=== PATIENT | male | born 1960 | race American Indian/Alaskan Native ===

== ENCOUNTER 2024-10-06 15:07 | Emergency (ER) | payer OTHER, SELFPAY ==
[2024-10-06] VITALS (10 sets, daily range): BP systolic 131–157; BP diastolic 83–89; PULSE 42–68; RESP 17–21; TEMP 36.1; O2SAT 96–98; BMI 25.8
--- NOTE | 2024-10-06 15:26 | DI.RAD.S_ITS ---
PROCEDURE: XR FINGER LT MIN 2V INDICATIONS: crush injury, laceration TECHNIQUE: AP hand, 2 views of the 1st finger(s) acquired. COMPARISON: None. FINDINGS: Bones: Comminuted fracture involving 1st distal phalangeal tuft with distal displacement of fractured fragment. No other fracture or dislocation. No suspicious bony lesions. Soft tissues: Soft tissue swelling around distal portion of left thumb is seen. No suspicious soft tissue calcifications. IMPRESSION: Acute comminuted and displaced fracture involving 1st distal phalangeal tuft with surrounding soft tissue swelling. No other fracture or dislocation. Dictated by: Giovany Munguia M.D. on 10/06/2024 at 15:40 Approved by: Giovany Munguia M.D. on 10/06/2024 at 15:41
--- NOTE | 2024-10-06 15:50 | PC.NURSE ---
Pt has a partial circumferential laceration at base of thumb nail bed that wraps to anterior aspect of thumb. It has some bleeding. Anterior of thumb is purple with decreased sensation. Provider Brad made aware of patient presentation. No new orders at this time.
[2024-10-06] MEDS: IBUPROFEN 400 MG TABLET PO (16:24)
[2024-10-06] MEDS: OXYCODONE/ACETAMINOPHEN 5/325 TABLET 1 TAB PO (16:24)
[2024-10-06] MEDS: cephALEXin 250 MG CAPSULE 500 MG PO (16:24)
[2024-10-06] MEDS: TET,DIPH,PERTUSS(ACELL),VAC/PF 0.5 ML SYRINGE IM (16:25)
[2024-10-06] MEDS: BACITRACIN OINT 0.9 GM PCKT 1 APPLIC TOP (19:08)
--- NOTE | 2024-10-06 19:10 | ED.GENADULT ---
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 Comes in with essentially a complete traumatic amputation of the tip of the left thumb at approximately the level of the base of the nail bed. Pain is controlled. There are no other injuries Related Data Home Medications Medication Instructions Recorded Confirmed lisinopril 40 mg tablet 40 mg PO DAILY 10/06/24 10/06/24 metoprolol succinate 50 mg 50 mg PO DAILY 10/06/24 10/06/24 tablet,extended release 24 hr simvastatin 40 mg tablet 40 mg PO ONCE PM 10/06/24 10/06/24 Previous Rx's Medication Instructions Recorded cephalexin 500 mg capsule 500 mg PO TID #21 caps 10/06/24 oxycodone-acetaminophen 5 mg-325 1 tab PO Q6H PRN pain #14 tabs 10/06/24 mg tablet Allergies Allergy/AdvReac Type Severity Reaction Status Date / Time No Known Drug Allergies Allergy Verified 10/06/24 15:13 Review of Systems Review of Systems Narrative: Pertinent positive and negative findings as per HPI Patient History Medical History (Updated 10/07/24 @ 07:21 by Tiffani Salinas MD) Hyperlipidemia Hypertension Social History Smoking Status: Current every day smoker Smoking Status: Current every day smoker Alcohol type: beer Exam Initial Vital Signs Initial Vital Signs: Vital Signs Temperature 97 F L 10/06/24 15:13 Pulse Rate 68 10/06/24 15:13 Respiratory Rate 17 10/06/24 15:13 Blood Pressure 157/89 H 10/06/24 15:13 Pulse Oximetry 96 10/06/24 15:13 Oxygen Delivery Method Room Air 10/06/24 15:13 General: Alert appropriate in no acute distress Respiratory: Able to speak in full sentences, no obvious respiratory distress Skin: No obvious rashes, warm and dry Neurologic: Grossly intact no obvious asymmetries or abnormalities Psych: appropriate insight and affect, cooperative Extremity: Tip of the left thumb with essentially traumatic amputation at the level of the nail bed. The midportion of the distal phalanx is extruding through the wound. There is still a flap of tissue that includes most of the pad of the thumb that is still has moderate blood flow. The very tip of the finger is a sensate with no blood flow. No other injury to the hand and he is neurovascularly intact proximal to the wound. Procedures Laceration Repair Completing traumatic amputation tip of the left thumb: Site: hand Side (If applicable): left Size (cm): 3 Description: irregular, contaminated and other (Traumatic amputation, nail bed involved) Depth: [id number] Local Anesthetic: lidocaine 1% Amount of anesthesia used (mL): 7 (Digital block done as well as infiltration around the wound to include bone) Pre-repair: wound explored, irrigated extensively, extensive debridement and wound margins revised Skin layer closed with: nylon (3-0 nylon deeper mattress sutures used to make sure that the skin pad was fully covering the distal portion of the phalanx 4.0 nylon was used with single interrupted sutures to reapproximate dermal edges. There was a proximally 3 mm portion where the wound was not able to be completely closed) Skin layer suture size: 3-0 and 4-0 Technique: simple, interrupted and horizontal mattress Muscle layer closed with: vicryl Muscle layer suture size: 3-0 (mattress, on either side of phalynx to close space and remove tension for external closure over bone) Number of sutures: 2 Course Orders Ordered: Discontinued Medications Bacitracin (Bacitracin Oint 0.9 Gm Pckt) 1 applic TOP NOW ONE Stop: 10/06/24 19:04 Last Admin: 10/06/24 19:08 Dose: 1 applic Documented By: JUAN A Cephalexin HCl (Cephalexin 250 Mg Capsule) 500 mg PO NOW ONE Stop: 10/06/24 16:17 Last Admin: 10/06/24 16:24 Dose: 500 mg Documented By: JUAN A Diphtheria/Tetanus/Acell Pertussis (Tet,Diph,Pertuss(Acell),Vac/Pf 0.5 Ml Syringe) 0.5 ml IM .ONCE ONE Stop: 10/06/24 16:17 Last Admin: 10/06/24 16:25 Dose: 0.5 ml Documented By: JUAN A Ibuprofen (Ibuprofen 400 Mg Tablet) 400 mg PO NOW ONE Stop: 10/06/24 16:17 Last Admin: 10/06/24 16:24 Dose: 400 mg Documented By: JUAN A Oxycodone/Acetaminophen (Oxycodone/Acetaminophen 5/325 Tablet) 1 tab PO NOW ONE Stop: 10/06/24 16:17 Last Admin: 10/06/24 16:24 Dose: 1 tab Documented By: JUAN A Oxycodone/Acetaminophen (Oxycodone/Apap 5/325 Prepack) 1 bottle MISC DIRECTED ONE Stop: 10/06/24 19:31 Last Admin: 10/06/24 19:36 Dose: 1 bottle Documented By: JUAN A(2) Vital Signs Vital signs: Vital Signs - 8 hr 10/06/24 15:13 10/06/24 16:39 10/06/24 16:49 Temperature 97 F L Pulse Rate 68 55 L Respiratory Rate 17 Blood Pressure 157/89 H 131/87 Pulse Oximetry 96 98 Oxygen Delivery Method Room Air Room Air 10/06/24 16:49 10/06/24 16:51 10/06/24 17:00 Temperature Pulse Rate 46 L 48 L Respiratory Rate Blood Pressure 131/87 Pulse Oximetry 98 97 Oxygen Delivery Method 10/06/24 17:30 10/06/24 18:00 10/06/24 18:30 Temperature Pulse Rate 48 L 47 L 49 L Respiratory Rate 20 21 Blood Pressure Pulse Oximetry 97 98 97 Oxygen Delivery Method Medical Decision Making [facility] Narrative Medical decision making narrative: CC: Traumatic amputation tip of the left thumb Complicating co-morbidities: L and I injury Data collected from: patient Differential considered: Superficial wound, deeper wound, full amputation Exam documented above, pertinent findings include: Traumatic amputation through the distal mid phalanx still has some viable tissue over the pad of the thumb Imaging studies independently reviewed: Hand x-ray shows Acute comminuted and displaced fracture involving 1st distal phalangeal tuft Consultations: Care is reviewed with Dr. Natalie Porter, orthopedics. Reviewed ER treatment. Patient will call the clinic in the morning for early outpatient orthopedic follow up Treatments: Ibuprofen, Percocet Oral Keflex Tetanus Discussion: 64-year-old gentleman with traumatic amputation distal tip of the left thumb. Through the nail bed he is informed that his nail may not grow back and if it does it likely is going to be dystrophic. The distal portion of the thumb with the remaining tuft fracture was removed. I did try to retain as much of the tissue that was still viable on the pad of the thumb. Complex closure was used to make sure that the tip of the bone was fully covered. [place] was used to smooth out and slightly shortened remaining portion of the phalanx. There was some undermining required on the nail surface of the thumb to make sure I could advanced the pad appropriately. There is still a small area in the middle of the visible wound where edges of the skin were not completely reapproximated but in his swollen enough that I suspect this is going to heal completely. Complications including revision failure, infection, osteomyelitis, nail bed disruption and continued pain are all reviewed with the patient in detail. He understands that he needs to call the orthopedic surgeon office in the morning to schedule follow up, we will leave suture removal recommendations to orthopedic surgeon, we will need extended timeframe for sutures to remain in place. Importance of completing course of antibiotics, review of pain care all discussed. Antibiotic dressing with a aluminum protect her over the tip of the thumb were placed. You tolerated all procedures well and is safe for discharge Discharge Plan Departure Patient Disposition: Home Clinical Impression: Amputation, thumb, traumatic Qualifiers: Encounter type: initial encounter Laterality: left Qualified Code(s): S68.012A - Complete traumatic metacarpophalangeal amputation of left thumb, initial encounter Instructions: DI for Traumatic Finger or Hand Amputation Activity Restrictions/Additional Instructions: Thank you for coming in today I am sorry got your thumb caught and ended up essentially cutting the very tip off. You manage to cut the very and bone of your thumb almost in half. This did go through the nail bed in the nail may not grow back. I was able to keep the living tissue and cover over the tip of the bone. This is a high-risk wound. There is risk for the wound breaking down, bone being exposed, infection and bone infection I did review all the findings tonight with Dr. Porter, our on-call orthopedic surgeon. I would like you to call their office tomorrow, [facility] orthopedics at [phone]. Please explain that you are in the emergency room last night, cut off the tip of your fingertips, it was sewn back together and needs outpatient follow up within the next couple of days. Using 400 mg of ibuprofen (2 [id number] pills) and 1 Tylenol every 6 hours can be very helpful in controlling pain. For severe pain you can use 400 mg of ibuprofen and 1 Percocet. As the numbing medicine wears off, keeping the thumb elevated above your heart we will help so that it does not throb so much You do need to complete 7 days of Keflex to make sure that this does not become infected. I did give you a tetanus shot today If you have increasing pain, the wound seems like it is pulling apart, there is drainage or increasing redness from the area need to come back on immediately I hope this heals well Prescriptions: New cephalexin 500 mg capsule 500 mg PO TID Qty: 21 0RF oxycodone-acetaminophen 5-325 mg tablet 1 tab PO Q6H PRN (Reason: pain) Qty: 14 0RF No Action metoprolol succinate 50 mg tablet extended release 24 hr 50 mg PO DAILY lisinopril 40 mg tablet 40 mg PO DAILY simvastatin 40 mg tablet 40 mg PO ONCE PM Stand Alone Forms: Patient Portal/API/Survey
[2024-10-06] MEDS: OXYCODONE/APAP 5/325 PREPACK 1 BOTTLE MISC (19:36)
== END 2024-10-06 19:36 | disposition home or self-care (01) ==
PROVIDERS: Emergency Provider Emergency Medicine
DX: S61.112A Laceration without foreign body of left thumb with damage to nail, initial encounter (principal); W23.0XXA Caught, crushed, jammed, or pinched between moving objects, initial encounter; Z23 Encounter for immunization
CPT/HCPCS: 13132; 73140; 90471; 99284; 90715